=== PATIENT | male | born 1995 | race African-American/Black ===

== ENCOUNTER 2023-02-14 13:54 | Emergency (ER) | payer OTHER ==
[2023-02-14 14:12] VITALS: BP 138/66; PULSE 82; RESP 18; TEMP 97.9; BMI 40.6
[2023-02-14] MEDS ORDERED: LIDOCAINE 4% PATCH TP ONE ×2 (14:53→15:14)
[2023-02-14] MEDS ORDERED: KETOROLAC TROMETHAMINE 30 MG/1 ML VIAL IM ONE (14:53)
[2023-02-14] MEDS ORDERED: CYCLOBENZAPRINE HCL 10 MG TABLET (FP) PO ONE (14:53)
[2023-02-14] MEDS ORDERED: ACETAMINOPHEN 500 MG TABLET (FP) PO ONE (14:53)
[2023-02-14] MEDS ORDERED: ACETAMINOPHEN 500 MG TABLET (FP) ONE (15:14)
[2023-02-14] MEDS ORDERED: CYCLOBENZAPRINE HCL 10 MG TABLET (FP) ONE (15:14)
[2023-02-14] MEDS ORDERED: KETOROLAC TROMETHAMINE 30 MG/1 ML VIAL ONE (15:14)
[2023-02-14] MEDS ORDERED: LIDOCAINE PATCH REMOVAL MC SCH (22:00)
== END 2023-02-14 16:12 | disposition home or self-care (01) ==
LOC: JERFT 13:54 → JER 13:54 → JERFT 16:12
PROC: 3E0233Z Introduction of Anti-inflammatory into Muscle, Percutaneous Approach (ICD-10-PCS; principal; 2023-02-14)
DX: M54.2 Cervicalgia (principal); M54.6 Pain in thoracic spine; V43.62XA Car passenger injured in collision with other type car in traffic accident, initial encounter; Y92.410 Unspecified street and highway as the place of occurrence of the external cause
CPT/HCPCS: 72100-TC-FY; 73560-TC-RT-FY; 99284-25